=== PATIENT | female | born 1960 | race Caucasian/White ===

== ENCOUNTER → 2018-03-30 14:02 | Outpatient (CLI) | payer OTHER, SELFPAY ==
--- NOTE | 2018-03-30 | DI.US.S_ITS ---
PROCEDURE: US PELVIC COMPLETE INDICATIONS: POST MENOPAUSAL BLEEDING TECHNIQUE: Real-time scanning was performed of the pelvic organs, with image documentation. Additional endovaginal scanning was necessary due to incomplete visualization of the adnexal and endometrial structures by transabdominal scanning. COMPARISON: [facility], , PELVIC COMPLETE, 02/01/2013, 10:37. FINDINGS: Transabdominal scanning: Limited scanning through the kidneys shows no hydronephrosis. No pathologic free abdominal or pelvic fluid. Endovaginal scanning: Uterus: Uterus is normal in size at 5.5 x 2.7 x 3.9 cm. The endometrium measures 1.8 mm in combined thickness. Ovaries: Left ovary not seen. Normal right ovary measuring 2.2 x 0.9 x 1.7 cm. Limited assessment of the kidneys demonstrates no gross abnormalities. IMPRESSION: No source for postmenopausal bleeding identified sonographically. Dictated by: Phil ALMODOVAR Interpreted: Jason Fernández MD on 03/30/2018 at 14:56 Approved by: Evan Fernández M.D. on 03/30/2018 at 16:37
== END ==
PROVIDERS: PCP Physician Assistant; Visit Provider Obstetrics & Gynecology
DX: N95.0 Postmenopausal bleeding (principal)
CPT/HCPCS: 76830; 76856

== ENCOUNTER → 2018-09-13 12:55 | Outpatient (CLI) | payer OTHER, SELFPAY ==
[2018-09-15 15:07] LABS: Fecal Immunochemical Test NOT DETECTED
== END ==
PROVIDERS: PCP Physician Assistant; Visit Provider Physician Assistant
DX: Z12.11 Encounter for screening for malignant neoplasm of colon (principal)
CPT/HCPCS: 82274

== ENCOUNTER → 2018-11-08 09:28 | Outpatient (CLI) | payer OTHER, SELFPAY ==
[2018-11-08 10:15] LABS: Cholesterol 243 mg/dL (140-199); HDL Cholesterol 46 mg/dL (40-60); LDL Cholesterol Calculated 164 mg/dL (<100); Triglycerides 164 mg/dL (35-150)
== END ==
PROVIDERS: PCP Physician Assistant; Visit Provider Physician Assistant
DX: E78.5 Hyperlipidemia, unspecified (principal)
CPT/HCPCS: 36415; 80061

== ENCOUNTER → 2019-03-07 11:23 | Outpatient (CLI) | payer OTHER, SELFPAY ==
--- NOTE | 2019-03-07 | DI.CT.S_ITS ---
PROCEDURE: CT SINUS SCREEN WO CON INDICATIONS: ANOSMIA TECHNIQUE: Noncontrast 3.0 mm axial images acquired from the frontal sinuses to the mid-sella, with coronal and sagittal reformats. For radiation dose reduction, the following was used: automated exposure control, adjustment of mA and/or kV according to patient size. COMPARISON: None. FINDINGS: Image quality: Excellent. Maxillary Sinuses: No bony remodeling or destruction. Sinuses are clear. Ethmoid Air Cells: No bony remodeling or destruction. Sinuses are clear. Sphenoid Sinuses: No bony remodeling or destruction. Sinuses are clear. Frontal Sinuses: The frontal sinuses are orally developed. Ostiomeatal Complexes: Ostiomeatal complexes are patent. No Marii cells. Miscellaneous: Visualized intra-orbital contents are normal. There is a right sided john bullosa seen. Mild leftward nasal septal deviation is seen. IMPRESSION: No active paranasal sinus disease is seen. Note is made that the frontal sinuses are poorly developed. Right sided john bullosa, with associated mild leftward nasal septal deviation. Dictated by: Pepe Carrasco M.D. on 03/07/2019 at 11:56 Approved by: Pepe Carrasco M.D. on 03/07/2019 at 11:57
== END ==
PROVIDERS: PCP Physician Assistant; Visit Provider Otolaryngology
DX: R43.0 Anosmia (principal); J34.3 Hypertrophy of nasal turbinates; J34.2 Deviated nasal septum
CPT/HCPCS: 70486

== ENCOUNTER → 2019-03-22 12:46 | Outpatient (CLI) | payer OTHER, SELFPAY ==
--- NOTE | 2019-03-22 12:47 | DI.MG.S_ITS ---
BILATERAL DIGITAL SCREENING MAMMOGRAM 3D/2D WITH CAD: 03/22/2019 CLINICAL: Routine screening. Family history of breast cancer. Comparison is made to exams dated: 11/22/2017 mammogram, 10/25/2016 mammogram, 06/02/2015 mammogram, and 08/19/2013 mammogram - [facility]. The tissue of both breasts is heterogeneously dense. This may lower the sensitivity of mammography. Current study was also evaluated with a Computer Aided Detection (CAD) system. There are benign post operative findings in the left breast. No significant masses, calcifications, or other findings are seen in either breast. There has been no significant interval change. IMPRESSION: There is no mammographic evidence of malignancy. A 1 year screening mammogram is recommended. This exam was interpreted at Station ID: [id number]. NOTE: For mammograms, a report in lay terms will be sent to the patient. Approximately 15% of breast malignancies will not be visualized mammographically. In the management of a palpable breast mass, a negative mammogram must not discourage biopsy of a clinically suspicious lesion. Electronically Signed By: Keshawn stack/cher:03/22/2019 18:35:08 letter sent: Normal Exam ACR BI-RADS Category 2: Benign Finding(s) 3342F
== END ==
PROVIDERS: PCP Physician Assistant; Visit Provider Physician Assistant
DX: Z12.31 Encounter for screening mammogram for malignant neoplasm of breast (principal); Z80.3 Family history of malignant neoplasm of breast
CPT/HCPCS: 77063; 77067

== ENCOUNTER 2019-11-19 14:16 | Day surgery (SDC) | payer OTHER, SELFPAY ==
[2019-11-19 14:52] VITALS: BP 121/73; PULSE 69; RESP 15; TEMP 36.3; O2SAT 97; BMI 25.8
[2019-11-19] MEDS: SODIUM CHLORIDE 0.9% 1,000 ML 200 ML IV (14:58)
--- NOTE | 2019-11-19 15:03 | P.HP_ITS ---
History of Present Illness History of Present Illness Date Patient Seen: 11/19/19 Time Patient Seen: 15:03 Chief complaint: [id number] Narrative: This is a 59-year-old woman with history of screening colonoscopy 10 years ago, and she was told to have a repeat colonoscopy in 10 years. She denies any symptoms of blood in the stool, dark, tarry looking stool, or unexplained weight loss or unexplained abdominal pain. She does have rectal prolapse, which she says she has had since the of her child 40 years ago. She denies any other significant medical problems. She did have significant somnolence after taking Ativan for a flight a few months ago. She took 3 tabs that were 0.5 mg each, and had amnesia for the events, and slept for ?27 hours.? She she was otherwise fine according to her and her . We discussed the fact that she would be getting a similar medication for this procedure, and that we would be judicious with the amount that we are giving her. ROS: Thirteen system review is otherwise negative other than as mentioned below and in HPI PE: GENERAL: Well groomed and cooperative. Appears stated age. Answers questions promptly and appropriately. Vital signs noted. HENT: Normocephalic, atraumatic. Hearing intact. Oral mucosa is pink and moist. EYES: Conjunctiva pink, sclera white, no periorbital swelling. CARDIOVASCULAR: Regular rate. No pedal edema. RESPIRATORY: Non-tachypneic, breathing comfortably on room air. GASTROINTESTINAL: Abdomen soft and non-distended GENITALURINARY: No flank tenderness. MUSCULOSKELETAL: Equal tone and mass bilaterally. SKIN: Warm, dry, soft, appropriate color for ethnicity. No other lesions, rashes, or wounds. NEURO: Alert and Oriented X 3. No gross sensory deficits, or cognitive issues. PSYCH: Appropriate affect and mood. . Patient History Medical History Depression (Chronic) Endometrial polyp (Resolved 09/2015) Erosion of vaginal mesh (Resolved 10/2017) GERD (gastroesophageal reflux disease) (Chronic) History of hysteroscopy (Resolved 09/2015) Osteopenia (Chronic) Surgical History History of bladder suspension procedure History of tonsillectomy Hx of cystoscopy (Resolved 10/2017) Hx of dilation and curettage (Resolved) Hx of vaginal surgery (Resolved 10/2017) Status post breast lumpectomy Status post knee surgery Status post rhinoplasty Family & Social History Family History Brother History of carotid artery disease Hypertension High cholesterol Father History of carotid artery disease High cholesterol Social History: household members spouse Tobacco & Substance use: Smoking Status Never smoker alcohol intake never Substance Use Type does not use Meds Home Medications and Allergies Home Medications Medication Instructions Recorded Confirmed Type [SERGIO] 1 tab PO QDAY #0 10/07/11 11/19/19 History [TURMERIC] 1 cap PO QDAY #0 11/06/17 11/19/19 History Albuterol sulfate (nebulizer) See Rx Instructions .ROUTE .COMPLEX 06/27/18 11/19/19 History Plexus Supplements See Rx Instructions .ROUTE .COMPLEX 06/27/18 11/19/19 History albuterol sulfate 90 mcg/actuation 2 puff INHALATION Q4-6H PRN #18 10/01/18 11/19/19 Rx aerosol inhaler gram beclomethasone dipropionate 40 2 puff INHALATION BID PRN 05/08/19 11/19/19 History mcg/actuation HFA breath activated aerosol omeprazole 20 mg capsule,delayed 20 mg PO ONCE PRN cap 05/08/19 11/19/19 History release fluoxetine 30 mg PO DAILY 11/19/19 11/19/19 History Allergies Allergy/AdvReac Type Severity Reaction Status Date / Time kiwi Allergy Severe ANAPHYLAXIS Verified 11/19/19 14:48 lorazepam AdvReac Severe Verified 11/19/19 14:48 sedation Exam Vital Signs (past 8 hours): - 11/19/19 14:52 Temperature 97.3 F L Pulse Rate 69 Respiratory Rate 15 Blood Pressure 121/73 Pulse Oximetry 97 Oxygen Delivery Method Room Air Assessment & Plan Assessment and plan (1) Rectal prolapse: Current visit: Yes Status: Acute (2) At average risk for colon cancer: Current visit: Yes Status: Acute Assessment & Plan narrative: Risks and benefits of screening colonoscopy and polypectomy were discussed with the patient who desires to proceed with her colonoscopy procedure. Risk of bleeding, perforation, need for additional p rocedures were discussed with the patient. Time Spent With Patient Time with patient: 15-24 minutes Quality VTE Deep Vein Thrombosis/Pulmonary Embolism Present on Admission: No
--- NOTE | 2019-11-19 15:08 | PM.OP.ENDO ---
Operative Date/Time/Diagnoses Date of procedure: 11/19/19 Time of procedure: 15:37 Pre-op diagnosis: Average risk for colon cancer, rectal prolapse Post-op diagnosis: same Procedure & Clinicians Study performed: Screening colonoscopy Same procedure as scheduled: Yes Indications: Average risk for colon cancer Surgeon: Briana Merino Procedure Notes SCOAP/Timeout: Performed Procedure in detail: The patient was brought to the room and placed in left lateral decubitus position with all bony prominences padded. A time-out was performed and then the patient was given procedural sedation starting with [2] mg of Versed and [100] mcg of fentanyl. A total of 4 mg of Versed and 200 micro g of fentanyl were given for the entire procedure. A total of Vitals were monitored throughout the procedure. Once adequately sedated the procedure was begun. A rectal exam was performed revealing short perineal body, and no obvious external hemorrhoids or masses. The colonoscope was then introduced to the rectum and advanced to the cecum in the usual fashion. []The cecum was identified by the appendiceal orifice, the mucosal tri-fold, and the ileocecal valve. Once to reach the cecum, the patient appeared to become more comfortable, but her oxygen saturation dropped into the 70s over the course of a couple of minutes. We increased her nasal cannula oxygen, used a bag-valve mask to ventilate her, and gave 0.2 mg of flumazenil to reverse her sedation. She quickly woke up after about 30 seconds of oxygen saturations in the 70s. Her oxygen saturation remained in the 90s for the rest of the procedure. The scope was then retracted while rotating side to side and examining each mucosal fold. [] At the conclusion of the procedure retroflexion was performed and [small grade 1-2 internal hemorrhoids without stigmata of bleeding were seen]. There was some macerated rectal mucosa which may be secondary to her rectal prolapse. But no large internal hemorrhoids were seen. The scope was then withdrawn from the rectum the procedure was concluded. The patient tolerated the procedure well and was transferred to the PACU in stable condition. Scope withdrawal time: 17 Sedation minutes: 30 Specimen(s): none sent Complications: none Impression: Normal colon Post-procedure Recommendations: Colonscopy in 10 years Plan for aftercare: Follow-up as needed discuss rectal prolapse symptoms Follow up: as needed Disposition: PACU
[2019-11-19] MEDS: FLUMAZENIL 0.5 MG/5 ML MDV 0.2 MG IV (15:42)
[2019-11-19] MEDS: MIDAZOLAM 5 MG/5 ML VIAL IV (15:44)
[2019-11-19 15:45] VITALS: BP 128/67; PULSE 76; RESP 8; TEMP 36.5; O2SAT 94
[2019-11-19] MEDS: fentaNYL 250 MCG/5 ML INJ IV (15:46)
[2019-11-19 15:50] VITALS: BP 115/64; PULSE 72; RESP 10; O2SAT 94
[2019-11-19 16:05] VITALS: BP 101/61; PULSE 65; RESP 12; O2SAT 9
[2019-11-19 16:13] VITALS: BP 120/69; PULSE 65; RESP 16; TEMP 36.4; O2SAT 99
--- NOTE | 2019-11-19 16:39 | SUR.PHASEII ---
Pt placed on continuous pulse ox. sats 97% and above. broiught in, d/c instructions discussed. Both voiced an understanding. Dr. Merino to bedside, spoke with both as well.
[2019-11-19 17:30] VITALS: BP 111/73; PULSE 62; RESP 13; TEMP 36.1; O2SAT 99
== END 2019-11-19 17:30 | disposition home or self-care (01) ==
PROVIDERS: Surgery; PCP Physician Assistant; Referring Provider Surgery; Visit Provider Surgery
PROC: 0DJD8ZZ Inspection of Lower Intestinal Tract, Via Natural or Artificial Opening Endoscopic (ICD-10-PCS; CPT 45378; principal; 2019-11-19 15:15)
DX: Z12.11 Encounter for screening for malignant neoplasm of colon (principal); K62.3 Rectal prolapse; K64.0 First degree hemorrhoids
CPT/HCPCS: 45378; 99152; 99153; J2250; J3010

== ENCOUNTER → 2019-12-17 08:31 | Outpatient (CLI) | payer OTHER, SELFPAY ==
[2019-12-17 09:53] LABS: Alanine Aminotransferase 19 IU/L (<35); Albumin 4.1 g/dL (3.5-5.0); Albumin Globulin Ratio 1.3 (1.0-2.8); Alkaline Phosphatase 77 U/L (38-126); Aspartate Aminotransferase 24 IU/L (14-36); BUN Creatinine Ratio 18.8 (6-22); Bilirubin Total 0.5 mg/dL (0.2-1.3); Blood Urea Nitrogen 15 mg/dL (7-17); Carbon Dioxide 31 mmol/L (22-32); Chloride 103 mmol/L (98-107); Cholesterol 270 mg/dL (140-199); Estimated Glomerular Filt Rate > 60.0 mL/min (>60); Globulin 3.2 g/dL (1.7-4.1); Glucose 105 mg/dL (80-110); HDL Cholesterol 41 mg/dL (40-60); HEMOLYSIS < 15 (0-50); LDL Cholesterol Calculated 199 mg/dL (<100); Potassium 3.7 mmol/L (3.4-5.1); Sodium 140 mmol/L (137-145); Total Protein 7.3 g/dL (6.3-8.2); Triglycerides 151 mg/dL (35-150)
== END ==
PROVIDERS: Physician Assistant; PCP Family Medicine; Referring Provider Family Medicine; Visit Provider Family Medicine
DX: E78.5 Hyperlipidemia, unspecified (principal)
CPT/HCPCS: 36415; 80053; 80061

== ENCOUNTER → 2020-03-02 14:39 | Outpatient (CLI) | payer OTHER, SELFPAY ==
--- NOTE | 2020-03-02 14:42 | DI.RAD.S_ITS ---
PROCEDURE: XR WRIST RT MIN 3V INDICATIONS: Right wrist pain TECHNIQUE: 4 views of the wrist were acquired. COMPARISON: None. FINDINGS: Bones: No fractures or dislocations. No suspicious bony lesions. Scaphoid view: No trauma Soft tissues: No suspicious soft tissue calcifications. IMPRESSION: No trauma found. It is unusual tenderness is present a hidden fracture conceivably could be present, and delayed plain films may be warranted in that circumstance (in the setting of prior trauma). Dictated by: Nimesh Mahoney M.D. on 03/02/2020 at 15:46 Approved by: Nimesh Mahoney M.D. on 03/02/2020 at 15:47
== END ==
PROVIDERS: PCP Family Medicine; Referring Provider Registered Nurse; Visit Provider Registered Nurse
DX: M25.531 Pain in right wrist (principal)
CPT/HCPCS: 73110

== ENCOUNTER → 2020-05-14 19:42 | Outpatient (CLI) | payer OTHER, SELFPAY ==
--- NOTE | 2020-05-14 | DI.MRI.S_ITS ---
PROCEDURE: MR WRIST RT WO CON INDICATIONS: right wrist injury TECHNIQUE: Noncontrast coronal proton density fast spin echo and T2 fast spin echo with fat saturation; coronal 3-D gradient echo, axial T1 spin echo and T2 fast spin echo with fat saturation, sagittal T1 spin echo through the wrist. COMPARISON: None. FINDINGS: Image quality: Excellent. Bones and cartilage: The carpal bones are normally aligned. No gross marrow edema or fracture. Nonspecific subcortical cyst formation are seen throughout scaphoid, lunate, distal ulnar, trapezoid and proximal capitate. No evidence for avascular necrosis. Mild osteoarthritic changes throughout wrist joints are seen. Carpal ligaments: The lunotriquetral ligament is intact. There is suggestion of low-grade sprain/partial-thickness tear involving scapholunate ligament. No full-thickness scapholunate ligament rupture. In the absence of intra-articular contrast, the extrinsic carpal ligaments are not well identified. On sagittal images, the pisohamate ligament appears intact. Triangular fibrocartilage complex: The triangular fibrocartilage appears intact. The adjacent meniscal homolog appears normal in the absence of intra-articular contrast. The extensor carpi ulnaris tendon is normal in location and morphology. Tendons and soft tissues: The carpal tunnel structures appear normal, including the median nerve. The ulnar nerve appears normal within Guyon's canal. Thickened extensor pollicis brevis and abductor pollicis longus tendons are noted with intrasubstance T2 hyperintense signal and surrounding soft tissue edema suggestive of tendinosis and low-grade intrasubstance partial-thickness tear. Rest of the extensor tendon compartments demonstrate normal morphology, without pathologic tendon sheath fluid. No soft tissue ganglion cysts. IMPRESSION: 1. Mild wrist joint osteoarthritic changes. No fracture or dislocation. Nonspecific subcortical cyst formation throughout carpal bones as above, erosive changes secondary to inflammatory arthropathy cannot be entirely excluded. 2. Suggestion of low-grade sprain/partial-thickness tear involving scapholunate ligament. No full-thickness ligamentous rupture. 3. Tendinosis and low-grade intrasubstance partial-thickness tear involving extensor pollicis brevis and abductor pollicis longus tendons at the level of ulnar styloid. Rest of the wrist tendons are intact. 4. Triangular fibrocartilage complex is intact. Dictated by: Morgan Butt M.D. on 05/15/2020 at 10:34 Approved by: Morgan Butt M.D. on 05/15/2020 at 10:46
== END ==
PROVIDERS: PCP Family Medicine; Referring Provider Orthopaedic Surgery; Visit Provider Orthopaedic Surgery
DX: S66.811A Strain of other specified muscles, fascia and tendons at wrist and hand level, right hand, initial encounter (principal); X58.XXXA Exposure to other specified factors, initial encounter
CPT/HCPCS: 73221

== ENCOUNTER → 2020-06-02 16:45 | Outpatient (CLI) | payer OTHER, SELFPAY ==
--- NOTE | 2020-06-02 | DI.MG.S_ITS ---
BILATERAL DIGITAL SCREENING MAMMOGRAM 3D/2D WITH CAD: 06/02/2020 CLINICAL: Routine screening. Family history of breast cancer. Comparison is made to exams dated: 03/22/2019 mammogram, 11/22/2017 ultrasound, 11/22/2017 mammogram, 10/25/2016 mammogram, and 06/02/2015 mammogram - [facility]. The tissue of both breasts is heterogeneously dense. This may lower the sensitivity of mammography. Current study was also evaluated with a Computer Aided Detection (CAD) system. No significant masses, calcifications, or other findings are seen in either breast. There has been no significant interval change. IMPRESSION: NEGATIVE There is no mammographic evidence of malignancy. A 1 year screening mammogram is recommended. This exam was interpreted at Station ID: [id number]. NOTE: For mammograms, a report in lay terms will be sent to the patient. Approximately 15% of breast malignancies will not be visualized mammographically. In the management of a palpable breast mass, a negative mammogram must not discourage biopsy of a clinically suspicious lesion. Electronically Signed By: Patricia lovett/cher:06/03/2020 09:03:23 letter sent: Normal Exam ACR BI-RADS Category 1: Negative 3341F
== END ==
PROVIDERS: PCP Family Medicine; Referring Provider Family Medicine; Visit Provider Family Medicine
DX: Z12.31 Encounter for screening mammogram for malignant neoplasm of breast (principal); Z80.3 Family history of malignant neoplasm of breast
CPT/HCPCS: 77063; 77067

== ENCOUNTER → 2020-06-10 09:02 | Outpatient (CLI) | payer OTHER, SELFPAY ==
--- NOTE | 2020-06-10 09:03 | DI.RAD.S_ITS ---
PROCEDURE: XR RIBS LT MIN 3V W CXR1V INDICATIONS: Hx L anterior rib pain s/p trauma 9 days ago. R/O fx. TECHNIQUE: 2 views of the left ribs were acquired, along with a single view chest. COMPARISON: None. FINDINGS: Surgical changes and devices: None. Bones and chest wall: No acute displaced fractures or dislocations. No suspicious bony lesions. Overlying soft tissues appear unremarkable. Lungs and pleura: No pleural effusions or pneumothorax. Lungs appear clear. Mediastinum: Mediastinal contours appear normal. Heart size is normal. IMPRESSION: No displaced rib fracture is seen. There is no pleural effusion or pneumothorax. Dictated by: Zachary Dennis M.D. on 06/10/2020 at 9:19 Approved by: Zachary Dennis M.D. on 06/10/2020 at 9:22
== END ==
PROVIDERS: PCP Family Medicine; Referring Provider Registered Nurse Diabetes Educator; Visit Provider Registered Nurse Diabetes Educator
DX: R07.81 Pleurodynia (principal)
CPT/HCPCS: 71101

== ENCOUNTER → 2020-12-29 15:22 | Outpatient (CLI) | payer BC, SELFPAY ==
[2020-12-29 16:02] LABS: COVID19 -Nasal RAPID Negative (Negative)
== END ==
PROVIDERS: PCP Family Medicine; Visit Provider Physician Assistant
DX: J02.9 Acute pharyngitis, unspecified (principal); R06.7 Sneezing; R51.9 Headache, unspecified; R53.83 Other fatigue; Z20.822 Contact with and (suspected) exposure to COVID-19
CPT/HCPCS: 87635

== ENCOUNTER → 2021-02-16 09:39 | Outpatient (CLI) | payer OTHER, SELFPAY ==
[2021-02-16 11:21] LABS: Alanine Aminotransferase 14 IU/L (<35); Albumin Globulin Ratio 1.2 (1.0-2.8); Alkaline Phosphatase 82 U/L (38-126); Aspartate Aminotransferase 24 IU/L (14-36); BUN Creatinine Ratio 28.4 (6-22); Bilirubin Total 0.3 mg/dL (0.2-1.3); Blood Urea Nitrogen 21 mg/dL (7-17); Calcium 9.3 mg/dL (8.4-10.2); Carbon Dioxide 28 mmol/L (22-32); Chloride 103 mmol/L (98-107); Cholesterol 252 mg/dL (140-199); Estimated Glomerular Filt Rate > 60.0 mL/min (>60); Globulin 3.3 g/dL (1.7-4.1); Glucose 104 mg/dL (80-110); HDL Cholesterol 43 mg/dL (40-60); HEMOLYSIS < 15 (0-50); LDL Cholesterol Calculated 183 mg/dL (<100); Sodium 137 mmol/L (137-145); Total Protein 7.3 g/dL (6.3-8.2); Triglycerides 130 mg/dL (35-150)
[2021-02-16 11:28] LABS: Vitamin D 25 Hydroxy (D3) 59.2 ng/mL (30.0-100.0)
== END ==
PROVIDERS: PCP Family Medicine; Referring Provider Family Medicine; Visit Provider Family Medicine
DX: E78.5 Hyperlipidemia, unspecified (principal); E66.3 Overweight; M85.80 Other specified disorders of bone density and structure, unspecified site; R73.03 Prediabetes
CPT/HCPCS: 36415; 80053; 80061; 82306

== ENCOUNTER → 2021-03-02 13:33 | Outpatient (CLI) | payer OTHER, SELFPAY | PROVIDERS: PCP Family Medicine; Referring Provider Family Medicine; Visit Provider Family Medicine | DX: Z78.0 Asymptomatic menopausal state (principal); E66.3 Overweight; R73.03 Prediabetes; M81.0 Age-related osteoporosis without current pathological fracture; E78.5 Hyperlipidemia, unspecified | CPT/HCPCS: 77080 ==

== ENCOUNTER → 2021-03-30 08:40 | Outpatient (CLI) | payer OTHER, SELFPAY ==
[2021-03-30 09:06] LABS: COVID19 -Nasal RAPID Negative (Negative)
== END ==
PROVIDERS: PCP Family Medicine; Visit Provider Physician Assistant
DX: Z20.822 Contact with and (suspected) exposure to COVID-19 (principal)
CPT/HCPCS: 87635

== ENCOUNTER → 2021-05-18 12:28 | Outpatient (CLI) | payer OTHER, SELFPAY ==
[2021-05-18 13:53] LABS: Add Manual Diff / Slide Review NO; Basophils Absolute Auto 100 /uL (0-100); Basophils Percent Auto 1.4 % (0-2); Eosinophils Absolute Auto 300 /uL (0-450); Eosinophils Percent Auto 4.7 % (2-4); Lymphocytes Absolute Auto 2000 /uL (1100-4500); Mean Corpuscular Hemoglobin 29.6 PG (26-34); Mean Corpuscular Volume 87.2 fL (80-100); Monocytes Absolute Auto 600 /uL (0-900); Monocytes Percent Auto 8.6 % (3-14); Neutrophils Absolute Auto 3800 /uL (1500-7000); Neutrophils Percent Auto 56.3 % (50-75); Platelet Count 275 X10^3/uL (150-400); Red Blood Cell Count 5.05 X10^6/uL (4.0-5.2); Red Cell Distribution Width 13.3 % (11.6-14.8); White Blood Cell Count 6.8 X10^3/uL (4.5-11.0)
[2021-05-18 14:03] LABS: Hemoglobin A1C% w Est Avg Glu 5.4 % (4.0-6.0)
[2021-05-18 14:08] LABS: Erythrocyte Sedimentation Rate 2 MM/HR (0-20)
[2021-05-18 14:59] LABS: TSH w/ Reflex to FT4 4.13 uIU/mL (0.47-4.68)
[2021-05-18 15:16] LABS: Vitamin B12 725 pg/mL (239-931)
[2021-05-19 05:48] LABS: Homocysteine 12.5 umol/L (0.0-17.2)
[2021-05-20 11:39] LABS: Albumin 3.5 g/dL (2.9-4.4); Alpha-1-Globulin 0.2 g/dL (0.0-0.4); Alpha-2-Globulin 0.6 g/dL (0.4-1.0); Gamma Globulin 1.3 g/dL (0.4-1.8); Globulin Total 3.1 g/dL (2.2-3.9); M-Spike % Not Observed % (Not Observed); Protein, Total 6.6 g/dL (6.0-8.5); Urine Total Protein <4.0 mg/dL (Not Estab.)
[2021-05-20 15:02] LABS: ANA Screen, IFA Negative (.)
[2021-05-21 09:18] LABS: Methylmalonic Acid,Serum 225 nmol/L (0-378)
== END ==
PROVIDERS: PCP Family Medicine; Referring Provider Family Medicine; Visit Provider Family Medicine
DX: G62.9 Polyneuropathy, unspecified (principal)
CPT/HCPCS: 36415; 82607; 83036; 83090; 83921; 84155; 84156; 84165; 84166; 84443; 85025; 85651; 86038

== ENCOUNTER → 2021-05-21 09:44 | Outpatient (CLI) | payer OTHER, SELFPAY ==
[2021-05-21 10:42] LABS: Free T3, Triiodothyronine Free 4.22 pg/mL (2.77-5.27); Free T4, Direct Thyroxine 1.13 ng/dL (0.78-2.19)
== END ==
PROVIDERS: PCP Family Medicine; Referring Provider Family Medicine; Visit Provider Family Medicine
DX: G62.9 Polyneuropathy, unspecified (principal)
CPT/HCPCS: 84439; 84481

== ENCOUNTER → 2021-06-25 10:10 | Outpatient (CLI) | payer OTHER, SELFPAY ==
--- NOTE | 2021-06-25 | DI.MG.S_ITS ---
BILATERAL DIGITAL SCREENING MAMMOGRAM 3D/2D WITH CAD: 06/25/2021 CLINICAL: Routine screening. Family history of breast cancer. Comparison is made to exams dated: 06/02/2020 mammogram, 03/22/2019 mammogram, and 11/22/2017 mammogram - [facility]. The tissue of both breasts is heterogeneously dense. This may lower the sensitivity of mammography. Current study was also evaluated with a Computer Aided Detection (CAD) system. No significant masses, calcifications, or other findings are seen in either breast. There has been no significant interval change. IMPRESSION: NEGATIVE There is no mammographic evidence of malignancy. A 1 year screening mammogram is recommended. This exam was interpreted at Station ID: [id number]. NOTE: For mammograms, a report in lay terms will be sent to the patient. Approximately 15% of breast malignancies will not be visualized mammographically. In the management of a palpable breast mass, a negative mammogram must not discourage biopsy of a clinically suspicious lesion. Electronically Signed By: Zachary bernal/cher:06/25/2021 10:41:49 letter sent: Normal Exam ACR BI-RADS Category 1: Negative 3341F
== END ==
PROVIDERS: PCP Family Medicine; Referring Provider Family Medicine; Visit Provider Family Medicine
DX: Z12.31 Encounter for screening mammogram for malignant neoplasm of breast (principal); Z80.3 Family history of malignant neoplasm of breast
CPT/HCPCS: 77063; 77067

== ENCOUNTER → 2021-08-12 11:55 | Outpatient (CLI) | payer OTHER, SELFPAY ==
--- NOTE | 2021-08-12 11:59 | DI.RAD.S_ITS ---
PROCEDURE: XR CERVICAL SPINE 2V OR 3V INDICATIONS: SPINAL PAIN TECHNIQUE: To view(s) of the cervical spine were acquired. COMPARISON: None. FINDINGS: Bones: No fractures or dislocations to the C7-T1 level. Straightening of normal cervical lordosis is seen. Degenerative endplate changes and bilateral facet hypertrophic changes are noted throughout cervical spine. The lateral masses of C1 appear intact on the odontoid view. No suspicious bony lesions. Soft tissues: No prevertebral soft tissue swelling. IMPRESSION: Degenerative disc disease throughout cervical spine. No acute fracture or dislocation. Dictated by: Morgan Butt M.D. on 08/12/2021 at 12:33 Approved by: Morgan Butt M.D. on 08/12/2021 at 12:36
--- NOTE | 2021-08-12 11:59 | DI.RAD.S_ITS ---
PROCEDURE: XR THORACIC SPINE 2V INDICATIONS: SPINAL PAIN TECHNIQUE: 3 views of the thoracic spine were acquired. COMPARISON: None. FINDINGS: Bones: No fractures or dislocations. No suspicious bony lesions. Degenerative endplate changes throughout mid to lower thoracic spine is seen. 12 pairs of ribs are noted, and appear intact where visualized. Soft tissues: No paravertebral stripe thickening. IMPRESSION: Degenerative disc disease in mid to lower thoracic spine. No compression fracture or spondylolisthesis. Dictated by: Morgan Butt M.D. on 08/12/2021 at 12:37 Approved by: Morgan Butt M.D. on 08/12/2021 at 12:38
--- NOTE | 2021-08-12 11:59 | DI.RAD.S_ITS ---
PROCEDURE: XR LUMBAR SPINE 2-3V INDICATIONS: SPINAL PAIN TECHNIQUE: 2 views of the lumbar spine were acquired. COMPARISON: None. FINDINGS: Bones: 5 [id number] vertebrae are present. There is normal bony alignment. [id number] degenerative endplate changes are noted at L3-4 through L5-S1 levels more prominent at L4-5 level. No vertebral body compression fractures. No suspicious bony lesions. Soft tissues: Overlying bowel gas pattern is normal. No suspicious soft tissue calcifications. IMPRESSION: Degenerative disc disease in mid to lower lumbar spine. No compression fracture or spondylolisthesis. Dictated by: Morgan Butt M.D. on 08/12/2021 at 12:37 Approved by: Morgan Butt M.D. on 08/12/2021 at 12:37
== END ==
PROVIDERS: PCP Family Medicine; Referring Provider Chiropractor; Visit Provider Chiropractor
DX: M99.01 Segmental and somatic dysfunction of cervical region (principal); M99.02 Segmental and somatic dysfunction of thoracic region; M99.03 Segmental and somatic dysfunction of lumbar region; M99.04 Segmental and somatic dysfunction of sacral region; M99.05 Segmental and somatic dysfunction of pelvic region; M54.50 Low back pain, unspecified; M50.30 Other cervical disc degeneration, unspecified cervical region; M51.36 Other intervertebral disc degeneration, lumbar region; M51.34 Other intervertebral disc degeneration, thoracic region
CPT/HCPCS: 72040; 72070; 72100

== ENCOUNTER → 2021-08-12 17:34 | Outpatient (CLI) | payer OTHER, SELFPAY ==
--- NOTE | 2021-08-12 17:34 | DI.MRI.S_ITS ---
PROCEDURE: MR LUMBAR SPINE WO CON INDICATIONS: Vertebrogenic low back pain TECHNIQUE: Noncontrast sagittal T1 spin echo and T2 fast echo, sagittal STIR, axial T1 and T2 fast spin echo through the lumbar spine. In cases with scoliosis, additional coronal T2 fast spin echo may be performed. COMPARISON: [facility], CR, XR LUMBAR SPINE 2-3V, 08/12/2021, 11:58. FINDINGS: Image quality: Excellent. Alignment and Curvature: There is normal bony alignment. Bone Marrow: Marrow is of normal overall signal. Moderate reactive endplate changes with Schmorl's nodes are noted L4-5. Minimal reactive endplate changes are noted L2-3, L3-4 and L5-S1. No acute vertebral body compression fractures. Spinal Cord: Conus medullaris terminates at the T12-L1 level. Visualized cord demonstrates normal signal and size. Paraspinous Soft Tissues: No paravertebral masses. Discs: Severe desiccation is present at L4-5, mild to moderate throughout the remainder of the lumbar spine. L1-L2: No disc bulge, spinal stenosis or foraminal narrowing. Minimal facet and ligamentum flavum hypertrophy. L2-L3: Minimal disc bulge without spinal stenosis or foraminal narrowing. Minimal facet and ligamentum flavum hypertrophy. L3-L4: Mild disc bulge with superimposed posterior central/left paracentral protrusion. There is indentation of the anterior thecal sac. Minimal to mild left foraminal narrowing. Minimal facet and ligamentum flavum hypertrophy. L4-L5: Mild disc bulge without spinal stenosis. Minimal to mild bilateral foraminal narrowing with facet and ligamentum flavum hypertrophy. L5-S1: Mild disc bulge with minimal posterior central protrusion. No spinal stenosis. No foraminal narrowing. IMPRESSION: 1. Multilevel early degenerative changes as above. 2. Minimal to mild foraminal narrowing is present L3-4 and L4-5 secondary to facet arthropathy. Dictated by: Kimberly Ojeda M.D. on 08/13/2021 at 8:06 Approved by: Kimberly Ojeda M.D. on 08/13/2021 at 8:10
== END ==
PROVIDERS: PCP Family Medicine; Referring Provider Chiropractor; Visit Provider Chiropractor
DX: M99.13 Subluxation complex (vertebral) of lumbar region (principal); M54.51 Vertebrogenic low back pain; M99.01 Segmental and somatic dysfunction of cervical region; M99.02 Segmental and somatic dysfunction of thoracic region; M99.03 Segmental and somatic dysfunction of lumbar region; M99.04 Segmental and somatic dysfunction of sacral region; M99.05 Segmental and somatic dysfunction of pelvic region; M54.50 Low back pain, unspecified; M50.30 Other cervical disc degeneration, unspecified cervical region; M51.36 Other intervertebral disc degeneration, lumbar region; M51.34 Other intervertebral disc degeneration, thoracic region
CPT/HCPCS: 72040; 72070; 72100; 72148

== ENCOUNTER → 2021-10-06 09:35 | Outpatient (CLI) | payer OTHER, SELFPAY ==
--- NOTE | 2021-10-06 09:36 | DI.US.S_ITS ---
PROCEDURE: US CAROTID DOPPLER BI INDICATIONS: family history of atherosclerosis TECHNIQUE: Color and pulse Doppler interrogation was performed of both carotid systems, with image documentation and velocity measurements. COMPARISON: None. FINDINGS: Stenosis calculations are based on SRU (Society of Radiologists in Ultrasound) criteria. Right side: Brachial blood pressure: 158/94 mm Hg. Common carotid artery peak systolic velocity: 74 cm/sec. Internal carotid artery peak systolic velocity: 81 cm/sec. Internal carotid artery end diastolic velocity: 32 cm/sec. External carotid artery peak systolic velocity: 75 cm/sec. ICA/CCA peak systolic ratio: 1.1 . Oakely scale imaging description: Soft plaque Percent internal carotid artery stenosis: Less than 50% . Vertebral artery: Flow direction is antegrade. Left side: Brachial blood pressure: 145/93 mm Hg. Common carotid artery peak systolic velocity: 82 cm/sec. Internal carotid artery peak systolic velocity: 60 cm/sec. Internal carotid artery end diastolic velocity: 24 cm/sec. External carotid artery peak systolic velocity: 59 cm/sec. ICA/CCA peak systolic ratio: 0.7 . Oakley scale imaging description: Soft plaque Percent internal carotid artery stenosis: Less than 50% . Vertebral artery: Flow direction is antegrade. IMPRESSION: 1. Less than 50% stenosis of the right and left internal carotid arteries. 2. Hypertension at the time of imaging. Dictated by: Anisa Day MD, PhD on 10/06/2021 at 14:24 Approved by: Anisa Day MD, PhD on 10/06/2021 at 14:25
[2021-10-06 11:31] LABS: Alanine Aminotransferase 13 IU/L (<35); Albumin 3.9 g/dL (3.5-5.0); Albumin Globulin Ratio 1.3 (1.0-2.8); Alkaline Phosphatase 67 U/L (38-126); Aspartate Aminotransferase 22 IU/L (14-36); BUN Creatinine Ratio 17.1 (6-22); Bilirubin Total 0.4 mg/dL (0.2-1.3); Blood Urea Nitrogen 14 mg/dL (7-17); Carbon Dioxide 30 mmol/L (22-32); Chloride 104 mmol/L (98-107); Cholesterol 209 mg/dL (140-199); Estimated Glomerular Filt Rate > 60.0 mL/min (>60); Glucose 95 mg/dL (80-110); HDL Cholesterol 42 mg/dL (40-60); HEMOLYSIS < 15 (0-50); LDL Cholesterol Calculated 141 mg/dL (<100); Potassium 3.9 mmol/L (3.4-5.1); Sodium 138 mmol/L (137-145); Total Protein 6.9 g/dL (6.3-8.2); Triglycerides 130 mg/dL (35-150)
== END ==
PROVIDERS: PCP Family Medicine; Referring Provider Family Medicine; Visit Provider Family Medicine
DX: Z09 Encounter for follow-up examination after completed treatment for conditions other than malignant neoplasm (principal); I65.23 Occlusion and stenosis of bilateral carotid arteries; I70.90 Unspecified atherosclerosis; E66.3 Overweight; E78.2 Mixed hyperlipidemia; R73.03 Prediabetes; E78.5 Hyperlipidemia, unspecified; R03.0 Elevated blood-pressure reading, without diagnosis of hypertension; Z82.49 Family history of ischemic heart disease and other diseases of the circulatory system
CPT/HCPCS: 36415; 80053; 80061; 93880

== ENCOUNTER → 2022-02-14 16:13 | Outpatient (CLI) | payer OTHER, SELFPAY ==
[2022-02-14 18:34] LABS: Influenza A - CEPHEID Flu A NEGATIVE (NEGATIVE); Influenza B - CEPHEID Flu B NEGATIVE (NEGATIVE)
[2022-02-14 19:05] LABS: COVID-19 CEPHEID PCR (VTM/NP) Negative (Negative)
== END ==
PROVIDERS: PCP Family Medicine; Visit Provider Nurse Practitioner Family
DX: R05.8 Other specified cough (principal)
CPT/HCPCS: 0240U

== ENCOUNTER → 2022-02-14 16:42 | Outpatient (CLI) | payer OTHER, SELFPAY ==
--- NOTE | 2022-02-14 16:45 | DI.RAD.S_ITS ---
PROCEDURE: XR CHEST 2V INDICATIONS: cough TECHNIQUE: 2 views of the chest were acquired. COMPARISON: [facility], , CHEST 2 VIEW, 02/06/2018, 13:25. FINDINGS: Surgical changes and devices: None. Lungs and pleura: Lungs are clear. No pleural effusions or pneumothorax. Mediastinum: Mediastinal contours are normal. Heart size is normal. Bones and chest wall: No suspicious bony abnormalities. Soft tissues appear unremarkable. IMPRESSION: No acute cardiopulmonary disease. Dictated by: Renata Cochran M.D. on 02/14/2022 at 17:01 Approved by: Renata Cocrhan M.D. on 02/14/2022 at 17:08
== END ==
PROVIDERS: PCP Family Medicine; Referring Provider Nurse Practitioner Family; Visit Provider Nurse Practitioner Family
DX: R05.8 Other specified cough (principal)
CPT/HCPCS: 0240U; 71046

== ENCOUNTER → 2022-03-04 10:01 | Outpatient (CLI) | payer OTHER, SELFPAY ==
--- NOTE | 2022-03-04 10:07 | DI.RAD.S_ITS ---
PROCEDURE: XR CHEST 2V INDICATIONS: cough TECHNIQUE: 2 views of the chest were acquired. COMPARISON: [facility], CR, XR CHEST 2V, 02/14/2022, 16:51. FINDINGS: Surgical changes and devices: None. Lungs and pleura: Lungs are clear. No pleural effusions or pneumothorax. Mediastinum: Mediastinal contours are normal. Heart size is normal. Bones and chest wall: No suspicious bony abnormalities. Soft tissues appear unremarkable. IMPRESSION: No acute cardiopulmonary pathology. Dictated by: Morgan Butt M.D. on 03/04/2022 at 10:28 Approved by: Morgan Butt M.D. on 03/04/2022 at 10:28
== END ==
PROVIDERS: PCP Family Medicine; Referring Provider Nurse Practitioner Family; Visit Provider Nurse Practitioner Family
DX: J45.909 Unspecified asthma, uncomplicated (principal)
CPT/HCPCS: 71046

== ENCOUNTER → 2022-09-01 11:35 | Outpatient (CLI) | payer OTHER, SELFPAY ==
--- NOTE | 2022-09-01 | DI.MG.S_ITS ---
BILATERAL DIGITAL SCREENING MAMMOGRAM 3D/2D WITH CAD: 09/01/2022 CLINICAL: Routine screening. Family history of breast cancer. Comparison is made to exams dated: 06/25/2021 mammogram, 06/02/2020 mammogram, and 03/22/2019 mammogram - [facility]. Both breasts are heterogeneously dense, which may obscure small masses (category c / 51-75% glandular tissue). Current study was also evaluated with a Computer Aided Detection (CAD) system. There is a possible developing irregular equal density asymmetry in the left breast middle depth superior region seen on the mediolateral oblique view only. This is more prominent. No other significant masses, calcifications, or other findings are seen in either breast. IMPRESSION: INCOMPLETE: NEEDS ADDITIONAL IMAGING EVALUATION The possible developing irregular equal density asymmetry in the left breast is indeterminate. Additional views with possible ultrasound are recommended. Based on the Tyrer Cuzick model (a risk assessment model) the patient's lifetime risk is 11.5% and her 10 year risk is 5.2%. According to the ACR, ACS, and NCCN guidelines, an annual breast MRI exam along with mammogram is recommended if the patient's lifetime risk is 20% or greater. This exam was interpreted at Station ID: [id number]. NOTE: For mammograms, a report in lay terms will be sent to the patient. Approximately 15% of breast malignancies will not be visualized mammographically. In the management of a palpable breast mass, a negative mammogram must not discourage biopsy of a clinically suspicious lesion. Electronically Signed By: Félix vu/cher:09/01/2022 14:41:48 letter sent: Additional Imaging Needed ACR BI-RADS Category 0: Incomplete 3340F
== END ==
PROVIDERS: PCP Family Medicine; Referring Provider Family Medicine; Visit Provider Family Medicine
DX: Z12.31 Encounter for screening mammogram for malignant neoplasm of breast (principal); Z80.3 Family history of malignant neoplasm of breast
CPT/HCPCS: 77063; 77067

== ENCOUNTER → 2023-02-16 11:29 | Outpatient (CLI) | payer OTHER, SELFPAY ==
[2023-02-16 12:52] LABS: C-Reactive Protein Quant < 0.5 mg/dL (<1.0); Cholesterol 225 mg/dL (140-199); HDL Cholesterol 56 mg/dL (40-60); LDL Cholesterol Calculated 152 mg/dL (<100); Triglycerides 83 mg/dL (35-150)
[2023-02-16 13:05] LABS: Vitamin D 25 Hydroxy (D3) 83.4 ng/mL (30.0-100.0)
[2023-02-16 13:35] LABS: Vitamin B12 > 1000 pg/mL (239-931)
== END ==
PROVIDERS: PCP Family Medicine; Referring Provider Family Medicine; Visit Provider Family Medicine
DX: E66.3 Overweight (principal); E78.2 Mixed hyperlipidemia; R73.03 Prediabetes; Z13.9 Encounter for screening, unspecified
CPT/HCPCS: 36415; 80061; 82306; 82607; 86140

== ENCOUNTER → 2023-03-15 12:53 | Outpatient (CLI) | payer OTHER, SELFPAY ==
[2023-03-15 14:15] LABS: Free T3, Triiodothyronine Free 4.42 pg/mL (2.77-5.27); Free T4, Direct Thyroxine 0.97 ng/dL (0.78-2.19)
[2023-03-15 14:29] LABS: Thyroid Stimulating Hormone 3.04 uIU/mL (0.47-4.68)
[2023-03-21 14:22] LABS: Estrogen 101 pg/mL (40-244)
[2023-03-23 01:54] LABS: % Free Progesterone 2.7 % (.); Free Progesterone <0.27 ng/dL (.); Progesterone, Serum <10 ng/dL (.)
== END ==
PROVIDERS: PCP Family Medicine; Referring Provider Family Medicine; Visit Provider Family Medicine
DX: Z78.0 Asymptomatic menopausal state (principal); N95.2 Postmenopausal atrophic vaginitis; Z79.890 Hormone replacement therapy; E03.9 Hypothyroidism, unspecified; R53.82 Chronic fatigue, unspecified; M79.7 Fibromyalgia
CPT/HCPCS: 36415; 82670; 82672; 82681; 84144; 84270; 84439; 84443; 84481; 84999

== ENCOUNTER → 2023-09-19 13:25 | Outpatient (CLI) | payer OTHER, SELFPAY ==
--- NOTE | 2023-09-19 13:26 | DI.US.S_ITS ---
LIMITED ULTRASOUND OF LEFT BREAST AND AXILLA: 09/19/2023 CLINICAL: Patient returns today to evaluate an asymmetry in the left breast. Palpable left breast lump. Palpable left breast lump. Comparison is made to exams dated: 09/19/2023 mammogram - [facility], 09/26/2022 mammogram - [facility], 09/01/2022 mammogram, 06/25/2021 mammogram, 06/02/2020 mammogram, and 03/22/2019 mammogram - [facility]. Color flow and real-time ultrasound of the left breast 1 o'clock, 3 o'clock, 9 o'clock, 11 o'clock, and axilla regions were performed. Oakley scale images of the real-time examination were reviewed. No significant abnormalities were seen sonographically in the left breast or the left axilla. IMPRESSION: NEGATIVE There is no sonographic evidence of malignancy. A 1 year screening mammogram is recommended. Exam findings were conveyed to the patient. Patient is advised to monitor for significant change. Clinical follow-up as needed. This exam was interpreted at Station ID: [id number]. Electronically Signed By: Sergio Machuca M.D. slc/:09/19/2023 15:26:40 letter sent: Normal Exam Ultrasound BI-RADS: 1 Negative
--- NOTE | 2023-09-19 13:26 | DI.US.S_ITS ---
LIMITED ULTRASOUND OF RIGHT BREAST AND AXILLA: 09/19/2023 CLINICAL: Palpable right breast lump. Comparison is made to exams dated: 09/19/2023 mammogram - [facility], 09/26/2022 mammogram - [facility], 09/01/2022 mammogram, 06/25/2021 mammogram, 06/02/2020 mammogram, and 03/22/2019 mammogram - [facility]. Color flow and real-time ultrasound of the right breast 4 o'clock, 8 o'clock, 12 o'clock, and axilla regions were performed. Oakley scale images of the real-time examination were reviewed. No significant abnormalities were seen sonographically in the right breast or the right axilla. IMPRESSION: NEGATIVE There is no sonographic evidence of malignancy. A 1 year screening mammogram is recommended. Exam findings were conveyed to the patient. Patient is advised to monitor for significant change. Clinical follow-up as needed. This exam was interpreted at Station ID: [id number]. Electronically Signed By: Sergio Machuca M.D. slc/:09/19/2023 15:25:09 letter sent: Normal Exam Ultrasound BI-RADS: 1 Negative
--- NOTE | 2023-09-19 13:26 | DI.MG.S_ITS ---
BILATERAL DIGITAL DIAGNOSTIC MAMMOGRAM 3D/2D: 09/19/2023 CLINICAL: Bilateral breast lumps. Comparison is made to exams dated: 09/01/2022 mammogram, 06/25/2021 mammogram, 06/02/2020 mammogram - [facility], and 09/26/2022 mammogram - [facility]. Both breasts are heterogeneously dense, which may obscure small masses (category c / 51-75% glandular tissue). No significant masses, calcifications, or other findings are seen in either breast. IMPRESSION: INCOMPLETE: NEEDS ADDITIONAL IMAGING EVALUATION No mammographic evidence of malignancy. Targeted ultrasounds are recommended and will immediately follow. Based on the Tyrer Cuzick model (a risk assessment model) the patient's lifetime risk is 11.1% and her 10 year risk is 5.2%. According to the ACR, ACS, and NCCN guidelines, an annual breast MRI exam along with mammogram is recommended if the patient's lifetime risk is 20% or greater. This exam was interpreted at Station ID: [id number]. NOTE: For mammograms, a report in lay terms will be sent to the patient. Approximately 15% of breast malignancies will not be visualized mammographically. In the management of a palpable breast mass, a negative mammogram must not discourage biopsy of a clinically suspicious lesion. Electronically Signed By: Sergio Machuca M.D. [facility] [place]/:09/20/2023 15:23:03 Entry: - 09/20/2023 15:23:03 ACR BI-RADS Category 0: Incomplete 3340F
== END ==
PROVIDERS: PCP Family Medicine; Referring Provider Family Medicine; Visit Provider Family Medicine
DX: R92.8 Other abnormal and inconclusive findings on diagnostic imaging of breast (principal)
CPT/HCPCS: 76642; 77066; G0279

== ENCOUNTER → 2023-12-11 14:24 | Outpatient (CLI) | payer OTHER, SELFPAY | PROVIDERS: PCP Family Medicine; Visit Provider Physician Assistant | DX: R10.9 Unspecified abdominal pain (principal) | CPT/HCPCS: 87086 ==

== ENCOUNTER → 2023-12-12 14:13 | Outpatient (CLI) | payer OTHER, SELFPAY | PROVIDERS: Physician Assistant; PCP Family Medicine; Referring Provider Family Medicine; Visit Provider Family Medicine | DX: R19.7 Diarrhea, unspecified (principal) | CPT/HCPCS: 87045 ==

== ENCOUNTER → 2023-12-14 09:12 | Outpatient (CLI) | payer OTHER, SELFPAY ==
[2023-12-14 11:11] LABS: Occult Blood 1 Negative (Negative); Occult Blood 2 Negative (Negative)
[2023-12-14 11:12] LABS: Occult Blood 3 Negative (Negative)
== END ==
PROVIDERS: Physician Assistant; PCP Family Medicine; Referring Provider Family Medicine; Visit Provider Family Medicine
DX: R19.7 Diarrhea, unspecified (principal)
CPT/HCPCS: 82270; 87177; 87329

== ENCOUNTER → 2023-12-18 07:34 | Outpatient (CLI) | payer OTHER, SELFPAY ==
[2023-12-18 09:24] LABS: Clostridium Difficile Tox PCR Positive for C. diff (Negative)
[2023-12-20 12:09] LABS: C difficie Toxins A and B, EIA Positive (Negative)
== END ==
LOC: LAB 07:35
PROVIDERS: PCP Family Medicine; Referring Provider Physician Assistant; Visit Provider Physician Assistant
DX: R19.7 Diarrhea, unspecified (principal)
CPT/HCPCS: 87324; 87493

== ENCOUNTER → 2024-01-09 10:17 | Outpatient (CLI) | payer OTHER, SELFPAY ==
--- NOTE | 2024-01-09 10:19 | DI.RAD.S_ITS ---
Bone Density Report Name: OSCAR SELLERS Age: 63 Sex: Female Ethnicity: White Date of : 1960 Indication: postmenopausal osteoporosis; Referring Provider: JANES BLACK Study: Bone densitometry was performed. Exam Date: January 09, 2024 Accession number: [id number] Bone Density: Region BMD T-score Z-score Classification AP Spine(L1-L4) 0.739 -2.8 -1.0 Osteoporosis Femoral Neck (Left) 0.577 -2.5 -1.0 Osteoporosis Total Hip (Left) 0.720 -1.8 -0.6 Osteopenia Femoral Neck (Right) 0.593 -2.3 -0.8 Osteopenia Total Hip (Right) 0.712 -1.9 -0.7 Osteopenia Total Hip Mean 0.716 -1.9 -0.7 Osteopenia World Health Organization criteria for BMD impression classify patients as: Normal (T-score at or above -1.0), Osteopenia (T-score between -1.0 and -2.5), or Osteoporosis (T-score at or below -2.5). 10-year Fracture Risk: FRAX not reported because: Some T-score for Spine Total or Hip Total or Femoral Neck at or below -2.5 Previous Exams: -- Region Exam Age BMD T-score BMD Change BMD Change Date g/cm2 vs Baseline vs Previous -- AP Spine (L1-L4) 01/09/2024 63 0.739 -2.8 -0.109 (-12.9%)# -0.020 (-2.6%)# 03/02/2021 60 0.759 -2.6 -0.090 (-10.6%)* -0.060 (-7.3%)* 11/22/2017 57 0.819 -2.1 -0.030 (-3.5%)* -0.030 (-3.5%)* 08/19/2013 53 0.849 -1.8 Total Hip(Left) 01/09/2024 63 0.720 -1.8 -0.077 (-9.7%)# -0.017 (-2.3%)# 03/02/2021 60 0.737 -1.7 -0.060 (-7.6%)* -0.019 (-2.5%) 11/22/2017 57 0.756 -1.5 -0.041 (-5.2%)* -0.041 (-5.2%)* 08/19/2013 53 0.797 -1.2 Total Hip(Right) 01/09/2024 63 0.712 -1.9 -0.113 (-13.7%)# -0.026 (-3.5%)# 03/02/2021 60 0.738 -1.7 -0.087 (-10.5%)* -0.062 (-7.7%)* 11/22/2017 57 0.800 -1.2 -0.025 (-3.0%) -0.025 (-3.0%) 08/19/2013 53 0.825 -1.0 -- *Denotes significance at 95% confidence level, LSC for AP Spine = 0.022 g/cm2, LSC for Total Hip = 0.027 g/cm2 # Denotes dissimilar scan types or analysis methods Impression: The patient has osteoporosis, based on the Total Spine T-score. No significant bone loss was observed. Discussion: INCREASED RISK OF FRACTURE. BONE DENSITY IS UNDESIRABLY LOW AT ONE OR MORE SKELETAL SITES, CONSISTENT WITH POSTMENOPAUSAL OSTEOPOROSIS. This patient's lowest T-score meets the World Health Organization's (WHO) criteria for osteoporosis at one or more sites (T-score -2.5 or below). In untreated patients, the risk of osteoporotic fracture increases approximately two-fold for each 1.0 SD decrease in T-score. Low bone density is not the only risk factor for fracture; also consider factors such as patient's age, frailty or poor health, risk of falling, risk of injury, previous osteoporotic fracture, family history of osteoporosis, cigarette smoking, low body weight, etc. Not everyone with low bone mineral density has osteoporosis; osteomalacia and other metabolic bone disorders should also be considered. Patients who have osteoporosis should be evaluated for specific diseases and conditions (secondary causes) that may cause or contribute to bone loss. The [place] Association [employer] Clinical Endocrinologists (AACE) and National Osteoporosis Foundation (NOF) recommend pharmacologic intervention for all postmenopausal women whose T-score is in this range. The patient should follow a healthful lifestyle (good nutrition with adequate calcium and vitamin D, and appropriate weight-bearing exercise). Follow-Up: Consider a repeat BMD and Vertebral Fracture Assessment (VFA) exam in 2 years or sooner if medically necessary, to reassess this patient's status. Reported by: MAGDI BRAVO MD on 01/09/2024 10:57:00 AM.
== END ==
PROVIDERS: PCP Family Medicine; Referring Provider Family Medicine; Visit Provider Family Medicine
DX: M81.0 Age-related osteoporosis without current pathological fracture (principal)
CPT/HCPCS: 77080

== ENCOUNTER → 2024-01-16 14:53 | Outpatient (CLI) | payer OTHER, SELFPAY ==
[2024-01-16 16:59] LABS: Influenza A - CEPHEID Flu A NEGATIVE (NEGATIVE); Influenza B - CEPHEID Flu B NEGATIVE (NEGATIVE); Respiratory Syncytial Virus Negative (Negative)
[2024-01-16 17:12] LABS: COVID-19 CEPHEID 4-PLEX PCR Negative (Negative)
== END ==
LOC: LAB 14:54
PROVIDERS: PCP Family Medicine; Visit Provider Nurse Practitioner Family
DX: R05.9 Cough, unspecified (principal)
CPT/HCPCS: 0241U

== ENCOUNTER → 2024-01-16 14:59 | Outpatient (CLI) | payer OTHER, SELFPAY ==
--- NOTE | 2024-01-16 15:01 | DI.RAD.S_ITS ---
PROCEDURE: XR CHEST 2V INDICATIONS: Cough TECHNIQUE: 2 views of the chest were acquired. COMPARISON: [facility], CR, XR CHEST 2V, 03/04/2022, 9:56. [facility], CR, XR CHEST 2V, 02/14/2022, 16:51. FINDINGS: Surgical changes and devices: None. Lungs and pleura: Increased indistinctness of the cardiac borders. [id number], increased peribronchial opacities. No pleural effusions. Mediastinum: Normal heart size. Cardiomediastinal contours unchanged. Bones and chest wall: Degenerative changes. IMPRESSION: Increased perihilar and medial lower lung peribronchial opacities, probably infectious or inflammatory. These may be located in the lingula and middle lobe, as the lower lobes appear clear on lateral view. Consider future imaging surveillance to assess for resolution. Dictated by: Dayton Cruz M.D. on 01/16/2024 at 16:11 Approved by: Dayton Cruz M.D. on 01/16/2024 at 16:13
== END ==
PROVIDERS: PCP Family Medicine; Referring Provider Nurse Practitioner Family; Visit Provider Nurse Practitioner Family
DX: R05.9 Cough, unspecified (principal)
CPT/HCPCS: 0241U; 71046

== ENCOUNTER → 2024-02-06 16:27 | Outpatient (CLI) | payer OTHER, SELFPAY ==
[2024-02-09 15:08] LABS: C difficie Toxins A and B, EIA Negative (Negative)
== END ==
PROVIDERS: PCP Family Medicine; Referring Provider Family Medicine; Visit Provider Family Medicine
DX: A04.72 Enterocolitis due to Clostridium difficile, not specified as recurrent (principal)
CPT/HCPCS: 87324; 87493

== ENCOUNTER → 2024-02-15 07:11 | Outpatient (CLI) | payer OTHER, SELFPAY ==
[2024-02-15 08:37] LABS: Add Manual Diff / Slide Review NO; Basophils Absolute Auto 100 /uL (0-100); Basophils Percent Auto 1.4 % (0-2); Eosinophils Absolute Auto 400 /uL (0-450); Eosinophils Percent Auto 7.1 % (2-4); Hematocrit 42.6 % (36-46); Hemoglobin 14.3 g/dL (12.0-16.0); Lymphocytes Absolute Auto 2100 /uL (1100-4500); Lymphocytes Percent Auto 34.4 % (25-40); Mean Corpuscular HGB Conc 33.5 % (30-36); Mean Corpuscular Hemoglobin 29.6 PG (26-34); Mean Corpuscular Volume 88.3 fL (80-100); Monocytes Absolute Auto 600 /uL (0-900); Monocytes Percent Auto 9.5 % (3-14); Neutrophils Absolute Auto 2900 /uL (1500-7000); Neutrophils Percent Auto 47.6 % (50-75); Platelet Count 270 X10^3/uL (150-400); Red Blood Cell Count 4.82 X10^6/uL (4.0-5.2); Red Cell Distribution Width 14.6 % (11.6-14.8)
[2024-02-15 08:48] LABS: Hemoglobin A1C% w Est Avg Glu 5.5 % (4.0-6.0)
[2024-02-15 09:32] LABS: Alanine Aminotransferase 21 IU/L (<35); Albumin Globulin Ratio 1.5 (1.0-2.8); Alkaline Phosphatase 77 U/L (38-126); Aspartate Aminotransferase 28 IU/L (14-36); BUN Creatinine Ratio 20.7 (6-22); Bilirubin Total 0.4 mg/dL (0.2-1.3); Blood Urea Nitrogen 17 mg/dL (7-17); Calcium 9.4 mg/dL (8.4-10.2); Carbon Dioxide 27 mmol/L (22-32); Chloride 107 mmol/L (98-107); Estimated Glomerular Filt Rate > 60 mL/min (>60); Globulin 2.7 g/dL (1.7-4.1); Glucose 90 mg/dL (80-110); HEMOLYSIS < 15 (0-50); Potassium 4.6 mmol/L (3.4-5.1); Sodium 138 mmol/L (137-145); Total Protein 6.7 g/dL (6.3-8.2)
[2024-02-15 09:35] LABS: High Sensitivity CRP - Cardiac 0.6 mg/L (1.0-3.0)
[2024-02-15 09:39] LABS: Free T3, Triiodothyronine Free 4.03 pg/mL (2.77-5.27); Free T4, Direct Thyroxine 1.01 ng/dL (0.78-2.19)
[2024-02-15 09:48] LABS: Vitamin D 25 Hydroxy (D3) 82.1 ng/mL (30.0-100.0)
[2024-02-15 09:53] LABS: Thyroid Stimulating Hormone 6.28 uIU/mL (0.47-4.68)
[2024-02-15 10:02] LABS: Ferritin 39 ng/mL (11-264)
[2024-02-15 10:16] LABS: Vitamin B12 Reflex MMA if <400 > 1000 pg/mL (239-931)
[2024-02-17 04:17] LABS: Insulin Level Total 10.9 uIU/mL (2.6-24.9)
[2024-02-17 19:40] LABS: Anti Thyroglobulin Antibody 3.8 IU/mL (0.0-0.9); Thyroid Peroxidase Antibodies 61 IU/mL (0-34)
[2024-02-18 12:02] LABS: Hematocrit 42.8 % (34.0-46.6); Hemolysate >620.0 ng/mL (Not Estab.)
[2024-02-19 09:36] LABS: Cholesterol, Total 273 mg/dL (100-199); HDL-Cholesterol 58 mg/dL (>39); HDL-Particle (Total) 24.6 umol/L (>=30.5); LDL Particle 2204 nmol/L (<1000); LDL Size 22.1 nm (>20.5); LDL-Cholsterol 195 mg/dL (0-99); LP-IR Score 50 (<=45); Small LDL- Particle 310 nmol/L (<=527); Triglycerides 111 mg/dL (0-149)
[2024-02-22 03:03] LABS: Lipoprotein (a) 11.9 nmol/L (<75.0)
== END ==
PROVIDERS: PCP Family Medicine; Referring Provider Family Medicine; Visit Provider Family Medicine
DX: Z00.01 Encounter for general adult medical examination with abnormal findings (principal); G62.9 Polyneuropathy, unspecified; M85.80 Other specified disorders of bone density and structure, unspecified site; E66.3 Overweight; R73.03 Prediabetes; R53.82 Chronic fatigue, unspecified; M79.7 Fibromyalgia; E78.2 Mixed hyperlipidemia; E55.9 Vitamin D deficiency, unspecified; D64.9 Anemia, unspecified; F41.8 Other specified anxiety disorders
CPT/HCPCS: 36415; 80053; 80061; 82306; 82607; 82728; 82747; 83036; 83090; 83525; 83695; 83704; 84439; 84443; 84481; 85014; 85025; 86140; 86376; 86800

== ENCOUNTER → 2024-02-27 09:37 | Outpatient (CLI) | payer OTHER, SELFPAY | PROVIDERS: PCP Family Medicine; Referring Provider Family Medicine; Visit Provider Family Medicine | DX: M81.0 Age-related osteoporosis without current pathological fracture (principal) | CPT/HCPCS: 36415; 82523 ==

== ENCOUNTER → 2024-04-05 10:45 | Outpatient (CLI) | payer MEDICARE, SELFPAY | PROVIDERS: PCP Family Medicine; Visit Provider Nurse Practitioner Family | DX: R30.0 Dysuria (principal) | CPT/HCPCS: 87086 ==

== ENCOUNTER → 2024-05-06 17:43 | Outpatient (CLI) | payer MEDICARE, SELFPAY ==
[2024-05-06 18:48] LABS: Thyroid Stimulating Hormone 2.48 uIU/mL (0.47-4.68)
== END ==
LOC: LAB 17:44
PROVIDERS: PCP Family Medicine; Referring Provider Family Medicine; Visit Provider Family Medicine
DX: E03.9 Hypothyroidism, unspecified (principal); M81.0 Age-related osteoporosis without current pathological fracture
CPT/HCPCS: 36415; 84443; 84481; 84482; 86376; 86800

== ENCOUNTER → 2024-05-29 11:57 | Outpatient (CLI) | payer MEDICARE, SELFPAY | PROVIDERS: PCP Family Medicine; Referring Provider Family Medicine; Visit Provider Family Medicine | DX: F41.8 Other specified anxiety disorders (principal) | CPT/HCPCS: 36415; 82627; 82670; 84402; 84403 ==

== ENCOUNTER → 2024-10-14 12:03 | Outpatient (CLI) | payer MEDICARE, SELFPAY ==
--- NOTE | 2024-10-14 12:06 | DI.MG.S_ITS ---
BILATERAL DIGITAL DIAGNOSTIC MAMMOGRAM 3D/2D: 10/14/2024 CLINICAL: Breast lump. Comparison is made to exams dated: 09/19/2023 mammogram - [facility], 09/26/2022 mammogram - [facility], 09/01/2022 mammogram, and 06/25/2021 mammogram - [facility]. The breasts are heterogeneously dense, which may obscure small masses (category c / 51-75% glandular tissue). There is a 1.1 cm irregular high density focal asymmetry with a spiculated and microlobulated margin in the right axillary tail. This is seen in additional views. This is more prominent and correlates as palpated. There is architectural distortion associated with the focal asymmetry. No other significant masses, calcifications, or other findings are seen in either breast. IMPRESSION: INCOMPLETE: NEED ADDITIONAL IMAGING EVALUATION The 1.1 cm irregular high density focal asymmetry corresponds to the palpable abnormality and is indeterminate. An ultrasound is recommended. This was performed immediately following this exam. Mammograms are otherwise stable. Based on the Tyrer Cuzick model (a risk assessment model) the patient's lifetime risk is 10.7% and her 10 year risk is 5.2%. According to the ACR, ACS, and NCCN guidelines, an annual breast MRI exam along with mammogram is recommended if the patient's lifetime risk is 20% or greater. This exam was interpreted at Station ID: [id number]. NOTE: For mammograms, a report in lay terms will be sent to the patient. Approximately 15% of breast malignancies will not be visualized mammographically. In the management of a palpable breast mass, a negative mammogram must not discourage biopsy of a clinically suspicious lesion. Electronically Signed By: Diana lau/:10/14/2024 12:47:51 letter sent: Additional Imaging Needed ACR BI-RADS Category 0: Incomplete: Need Additional Imaging Evaluation
--- NOTE | 2024-10-14 12:06 | DI.US.S_ITS ---
LIMITED ULTRASOUND OF RIGHT BREAST AND AXILLA: 10/14/2024 CLINICAL: Palpable right breast lump. Comparison is made to exams dated: 10/14/2024 mammogram, 09/19/2023 ultrasound, 09/19/2023 mammogram, 09/01/2022 mammogram, 06/25/2021 mammogram, and 06/02/2020 mammogram - [facility]. Color flow and real-time ultrasound of the right breast 10 o'clock, and axilla regions were performed. Oakley scale images of the real-time examination were reviewed. There is a 1.4 cm x 1.4 cm x 1.3 cm irregular mass with an angular margin in the right breast at 10 o'clock middle depth 8 cm from the nipple. This irregular mass is hypoechoic with an echogenic boundary. This correlates as palpated and with mammography findings. Color flow imaging demonstrates that there is vascularity present. No significant abnormalities were seen sonographically in the right axilla. IMPRESSION: SUSPICIOUS The 1.4 cm irregular mass in the right breast corresponds to the palpable abnormality and mammogram finding, and is at a moderate suspicion for malignancy. An ultrasound guided biopsy is recommended. Findings and recommendations were discussed with the patient in person by Dr. Ze Lara at time of exam. This exam was interpreted at Station ID: [id number]. Electronically Signed By: Diana lau/:10/14/2024 13:15:12 letter sent: Biopsy Required ACR BI-RADS Category 4B: Suspicious
== END ==
PROVIDERS: PCP Family Medicine; Referring Provider Orthopaedic Surgery; Visit Provider Orthopaedic Surgery
DX: R92.8 Other abnormal and inconclusive findings on diagnostic imaging of breast (principal); N63.11 Unspecified lump in the right breast, upper outer quadrant; R92.333 Mammographic heterogeneous density, bilateral breasts
CPT/HCPCS: 76642; 77066; G0279

== ENCOUNTER → 2025-02-06 18:21 | Outpatient (CLI) | payer MEDICARE, SELFPAY | PROVIDERS: PCP Family Medicine; Visit Provider Nurse Practitioner Family | DX: R30.0 Dysuria (principal) | CPT/HCPCS: 87077; 87086; 87186; 87210 ==

== ENCOUNTER → 2025-03-12 10:21 | Outpatient (CLI) | payer MEDICARE, SELFPAY ==
--- NOTE | 2025-03-12 10:23 | DI.RAD.S_ITS ---
PROCEDURE: XR DEXA AXIAL SKELETON INDICATIONS: Osteoporosis COMPARISON: [facility], , XR DEXA AXIAL SKELETON, 01/09/2024, 10:39. FINDINGS: Lumbar Spine: Bone mineral density 0.689 g/cm2, T score -3.3, compared to -2.8. Left Femoral Neck: Bone mineral density 0.572 g/cm2, T score -2.5, unchanged. Left Hip: Bone mineral density 0.692 g/cm2, T score -2.0, compared to-1.8. Fracture Risk Calculation (when applicable): 10-year fracture risk of a major osteoporotic fracture 33 percent and of a hip fracture 5.2 percent. (T score greater or equal to -1.0 to: NORMAL) (T score from -1.1 to -2.4: OSTEOPENIA) (T score less than or equal to -2.5: OSTEOPOROSIS) IMPRESSION: Osteoporosis progressive is present in the lumbar spine demonstrating approximate 7% bone mineral density loss. Relatively stable appearance osteoporosis in the femoral neck. Follow-up guidelines as follows: Osteoporosis: Consider a repeat DEXA and Vertebral Fracture Assessment (VFA) exam in 2 years or sooner if medically necessary, to reassess this patient's status. Osteopenia: Consider a repeat DEXA in 2-3 years to reassess this patient's status, or if there is a new clinical indication. Normal: Consider a repeat DEXA in 5 years or sooner, or if there is a new clinical indication. All treatment decisions require clinical judgment and consideration of individual patient factors, including patient preferences, comorbidities, previous drug use, risk factors not captured in the FRAX model (e.g., frailty, falls, vitamin D deficiency, increased bone turnover, interval significant decline in bone density ) and possible under- or over-estimation of fracture risk by FRAX. In addition, the NOF Guide recommends that FDA-approved medical therapies be considered in postmenopausal women and men age >= 50 years with a: * Hip or vertebral (clinical or morphometric) fracture * T-score of <=-2.5 at the spine or hip * Ten-year fracture probability by FRAX of >= 3% for hip fracture or >=20% for major osteoporotic fracture. Dictated by: Kimberly Ojeda M.D. on 03/12/2025 at 16:05 Approved by: Kimberly Ojeda M.D. on 03/12/2025 at 16:08
[2025-03-12 11:57] LABS: Alanine Aminotransferase 14 IU/L (<35); Albumin 4.2 g/dL (3.5-5.0); Albumin Globulin Ratio 1.4 (1.0-2.8); Alkaline Phosphatase 67 U/L (38-126); Aspartate Aminotransferase 25 IU/L (14-36); BUN Creatinine Ratio 13.6 (6-22); Bilirubin Total 0.7 mg/dL (0.2-1.3); Blood Urea Nitrogen 12 mg/dL (7-17); Calcium 9.6 mg/dL (8.4-10.2); Carbon Dioxide 26 mmol/L (22-32); Chloride 105 mmol/L (98-107); Cholesterol 236 mg/dL (140-199); Estimated Glomerular Filt Rate > 60 mL/min (>60); Globulin 2.9 g/dL (1.7-4.1); Glucose 83 mg/dL (70-99); HDL Cholesterol 42 mg/dL (40-60); HEMOLYSIS < 15 (0-50); LDL Cholesterol Calculated 173 mg/dL (<100); Potassium 4.8 mmol/L (3.4-5.1); Sodium 137 mmol/L (137-145); Total Protein 7.1 g/dL (6.3-8.2); Triglycerides 105 mg/dL (35-150)
[2025-03-13 04:39] LABS: CRP, High Sensitivity 0.37 mg/L (0.00-3.00)
== END ==
PROVIDERS: PCP Family Medicine; Referring Provider Family Medicine; Visit Provider Family Medicine
DX: M81.0 Age-related osteoporosis without current pathological fracture (principal); E78.5 Hyperlipidemia, unspecified
CPT/HCPCS: 36415; 77080; 80053; 80061; 86140

== ENCOUNTER → 2025-07-17 13:10 | Outpatient (CLI) | payer MEDICARE, SELFPAY ==
--- NOTE | 2025-07-17 13:11 | DI.RAD.S_ITS ---
PROCEDURE: XR CHEST 2V INDICATIONS: Cough TECHNIQUE: 2 views of the chest were acquired. COMPARISON: [facility], CR, XR CHEST 2V, 01/16/2024, 15:00. FINDINGS: Heart, mediastinum and pulmonary vascular: Heart is normal in size and configuration. Mediastinum is unremarkable. Pulmonary vascular is normal. Lungs: A 4 cm mass versus masslike infiltrate has developed in the right middle lobe. Pleural spaces: Normal-no effusions or pneumothorax. Bones and soft tissues: Bilateral mastectomy changes now noted IMPRESSION: 4 cm mass versus masslike infiltrate developing in the right middle lobe since previous exam 1.5 years ago. If there is clinical suspicion for pneumonia, suggest antibiotic therapy and repeat film in 3-4 weeks. Any persistent density will require chest CT to evaluate for malignancy . Dictated by: Elbert Wong M.D. on 07/18/2025 at 11:34 Approved by: Elbert Wong M.D. on 07/18/2025 at 11:36
== END ==
PROVIDERS: PCP Family Medicine; Referring Provider Nurse Practitioner Family; Visit Provider Nurse Practitioner Family
DX: R05.9 Cough, unspecified (principal); R91.8 Other nonspecific abnormal finding of lung field
CPT/HCPCS: 71046

== ENCOUNTER → 2025-07-17 14:29 | Outpatient (CLI) | payer MEDICARE, SELFPAY ==
[2025-07-17 15:23] LABS: Influenza A - CEPHEID Flu A NEGATIVE (NEGATIVE); Influenza B - CEPHEID Flu B NEGATIVE (NEGATIVE)
[2025-07-17 15:24] LABS: COVID-19 CEPHEID 4-PLEX PCR Negative (Negative)
== END ==
PROVIDERS: PCP Family Medicine; Visit Provider Nurse Practitioner Family
DX: R05.1 Acute cough (principal); R91.8 Other nonspecific abnormal finding of lung field
CPT/HCPCS: 71046; 87637

== ENCOUNTER → 2025-10-15 12:27 | Outpatient (CLI) | payer MEDICARE, SELFPAY ==
[2025-10-15 13:21] LABS: Appearance Urine UA CLEAR; Bilirubin Urine UA NEGATIVE (NEGATIVE); Color Urine UA YELLOW; Glucose Urine UA NEGATIVE (Negative); Ketones Urine UA NEGATIVE (NEGATIVE); Leukocyte Esterase Urine UA NEGATIVE (NEGATIVE); Nitrite Urine UA NEGATIVE (Negative); Occult Blood Urine UA NEGATIVE (Negative); Protein Urine UA NEGATIVE (Negative); Specific Gravity Urine UA 1.020 (1.000-1.035); Urobilinogen Urine UA 0.2 E.U./dL (0.2)
[2025-10-15 13:22] LABS: pH Urine UA 7.0 (4.5-8.0)
[2025-10-15 13:40] LABS: Blood Urea Nitrogen 19 mg/dL (7-17); Calcium 9.2 mg/dL (8.4-10.2); Carbon Dioxide 26 mmol/L (22-32); Chloride 104 mmol/L (98-107); Estimated Glomerular Filt Rate > 60 mL/min (>60); Glucose 87 mg/dL (70-99); HEMOLYSIS < 15 (0-50); Potassium 4.1 mmol/L (3.4-5.1); Sodium 138 mmol/L (137-145)
[2025-10-15 15:23] LABS: Protein (Total) Urine Random < 5 mg/dL (0-12); Protein Creatinine Ratio Urine 0.04 GRAM/24H
== END ==
PROVIDERS: PCP Family Medicine
DX: C50.411 Malignant neoplasm of upper-outer quadrant of right female breast (principal); Z17.0 Estrogen receptor positive status [ER+]
CPT/HCPCS: 80048; 81001; 82570; 84156; 84300